=== PATIENT | female | born 1995 | race Two or more races ===

== ENCOUNTER 2020-05-30 15:57 | Emergency (ER) | payer MEDICAID ==
[~2020-05-30] VITALS: Ht 162.6 cm; Wt 68.9 kg
[2020-05-30 16:10] VITALS: BP 126/81
--- NOTE | 2020-05-30 16:17 | NUR ---
pt arrives to ER with complaints of sudden onset of lower back pain. pt states bending and standing when symptoms begin. pt is describing pain as an sharp severe radiating to her legs.
[2020-05-30] MEDS ORDERED: ROBAXIN-750750 MG PO (16:18)
[2020-05-30] MEDS ORDERED: NORCO 7.5/3251 EA ORAL (16:18)
[2020-05-30] MEDS ORDERED: LIDODERM700 M1 TOPIC (16:18)
[2020-05-30] MEDS ORDERED: IBUPROFEN600 M1 ORAL (16:18)
--- NOTE | 2020-05-30 16:21 | Emergency Room Report ---
History of Present Illness General Chief Complaint: Lower Back Pain or Injury Source: Patient Present Illness HPI Disclaimer: Please note that this report is being documented using DRAGON technology. This can lead to erroneous entry secondary to incorrect interpretation by the dictating instrument. HPI: 24-year-old female presents with lower back pain. 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 Denies loss of strength or sensation in the lower body. Continues to pass urine without difficulty. Denies fever or chills. Does not inject any medication. There was no fall or direct injury to the lower back. Patient states she had a similar sensation earlier this week but it resolved. She does not know of any back problems. Has not taken any medication prior to arrival but was able to borrow a back brace from a friend which she states helps. Pain exacerbated by laying flat and bending and twisting motions. Made better by sitting upright in a chair. PMH: Reviewed PSH: Reviewed Allergies: Reviewed Social Hx: Reviewed Allergies: Coded Allergies: No Known Allergies (Unverified , 05/30/20) COVID-19 Screening Contact w/high risk pt: No Experienced COVID-19 symptoms?: No COVID-19 Testing performed DENTAL OFFICE RECEPTIONIST: No Patient History Now: No Nursing Documentation-PMH Hx Cardiac Problems: No Hx Hypertension: No Hx Pacemaker: No Hx Asthma: No Hx COPD: No Hx Diabetes: No Hx Cancer: No Hx Gastrointestinal Problems: No Hx Dialysis: No History Of Psychiatric Problem: No Hx Neurological Problems: No Hx Cerebrovascular Accident: No Hx Seizures: No Review of Systems All Other Systems: negative except mentioned in HPI Physical Exam Vital Signs Date Time Temp Pulse Resp B/P (MAP) Pulse Ox O2 Delivery O2 Flow Rate FiO2 05/30/20 15:58 98.8 93 18 126/81 (96) 98 Room Air General: Awake and alert, no acute distress HEENT: NC/AT. EOMI. Resp: Normal work of breathing Skin: Intact. No abrasions, laceration or rash over the exposed skin MSK: Normal tone and bulk. Moving all extremities. No obvious deformity. Ambulating with a steady gait. Neuro: Awake and alert. Mentating appropriately. Sensation intact over the dermatomes of the lower extremities. Spine: No tenderness, step-off or deformity in the midline in the cervical, thoracic or lumbosacral spine. There is right-sided paraspinal tenderness in the lower lumbar region extending over the right gluteus and the lateral aspect of the right leg. Medical Decision Making Diagnostic Impression: Primary Impression: Radicular low back pain ER Course Is a 24-year-old female presenting with atraumatic right-sided lower back pain after bending over earlier today. Most consistent with radicular pain secondary to likely due to herniated disc. There is no direct trauma and a low suspicion for fracture, dislocation or infectious process. There is no clinical evidence of cauda equina syndrome or spinal epidural abscess or space-occupying lesion at this time. Do not believe he requires emergent imaging at this time. Will treat with pain medication, muscle relaxants, topical medications. She will continue use her back brace for comfort and stability. Will refer to clinic for follow-up and discussed reasons to return to the emergency department. She understands and agrees with this treatment plan. Last Vital Signs Date Time Temp Pulse Resp B/P (MAP) Pulse Ox O2 Delivery O2 Flow Rate FiO2 05/30/20 16:10 98.8 18 126/81 98 Room Air 05/30/20 15:58 93 Disposition: HOME, SELF-CARE Condition: Stable Scripts Hydrocodone/Acetaminophen (Hydrocodon-Acetaminoph 7.5-325) 1 Each Tablet 1 TAB ORAL Q6H PRN for For Pain, #12 TAB 0 Refills Prov: Roland Cruz MD 05/30/20 Lidocaine Patch* (Lidoderm Patch*) 1 Each Adh..patch 1 PATCH TOPIC DAILY, #30 PATCH Patch(es) may remain in place for up to 12 hours in any 24-hour period. Prov: Roland Cruz MD 05/30/20 Methocarbamol* (ROBAXIN-750*) 750 Mg Tablet 750 MG PO QID, #28 TAB 0 Refills Prov: Roland Cruz MD 05/30/20 Ibuprofen* (MOTRIN*) 600 Mg Tablet 600 MG ORAL Q6H PRN for For Pain, #30 TAB 0 Refills Prov: Roland Cruz MD 05/30/20 Referrals: [facility]. [facility] Patient Instructions: Herniated Disk Additional Instructions: Please follow-up with your primary care doctor in the next 1 to 3 days to discuss this emergency department visit and for reevaluation. If you have any new or worsening symptoms please return to the emergency department for reevaluation. Please note that this report is being documented using DRAGON technology. This can lead to erroneous entry secondary to incorrect interpretation by the dictating instrument. Roland Cruz MD May 30, 2020 16:21
== END 2020-05-30 16:34 | disposition home or self-care (01) ==
LOC: EMR 16:29
DX: M54.5 Low back pain (principal)
CPT/HCPCS: 99282